=== PATIENT | female | born 1955 | race Caucasian/White ===

== ENCOUNTER 2023-03-23 08:46 | Day surgery (SDC) | payer MEDICARE, OTHER ==
[~2023-03-23 08:46] MED LIST: ALPRAZolam 0.25 MG TAB PO PRN; ALPRAZolam 0.5 MG TAB PO PRN; ASPIRIN 325 MG TAB PO STA; ATORVASTATIN 80 MG TAB PO STA; HEPARIN SODIUM,PORCINE (1 ML) 2,500 UNIT in SODIUM CHLORIDE 0.9% 250 ML IRRIGATION PRN; HEPARIN SODIUM,PORCINE 10,000 UNIT in SODIUM CHLORIDE 0.9% 1,000 ML IRRIGATION PRN; NITROGLYCERIN SL TABS 0.4 MG TAB SUBLINGUAL PRN; SODIUM CHLORIDE 0.9% 1,000 ML in EMPTY BAG 1 BAG IV SCH
[2023-03-23] MEDS ORDERED: SODIUM CHLORIDE 0.9% 1,000 ML IV ONE (08:57)
[2023-03-23 09:13] VITALS: TEMP 97.9
[2023-03-23 09:26] LABS: Basophils # (A) 0.1 k/uL (0-0.2); Basophils % (A) 1 %; Eosinophils # (A) 0.1 k/uL (0-0.7); Eosinophils % (A) 2 %; HCT 48.7 % (34.0-46.0); Lymphocytes # (A) 2.4 k/uL (1.0-4.8); Lymphocytes % (A) 33 %; MCH 29.3 pg (25.0-35.0); Mean Platelet Volume 8.4; Monocytes # (A) 0.4 k/uL (0-1.0); Monocytes % (A) 6 %; Neutrophils # (A) 4.2 k/uL (1.3-7.7); Neutrophils % (A) 57 %; Platelet Count 290 k/uL (150-450); RBC 5.46 m/uL (3.80-5.40); WBC 7.3 k/uL (3.8-10.6)
[2023-03-23 09:29] LABS: African American GFR (CKD) >90 (>60 ml/min/1.73 sqM); Anion Gap 11 mmol/L; Blood Urea Nitrogen 22 mg/dL (7-17); Calcium 11.1 mg/dL (8.4-10.2); Carbon Dioxide 27 mmol/L (22-30); Chloride 101 mmol/L (98-107); Glucose 219 mg/dL (74-99); Non-African American GFR(CKD) >90 (>60 ml/min/1.73 sqM); Potassium 4.1 mmol/L (3.5-5.1); Sodium 139 mmol/L (137-145)
[2023-03-23] MEDS ORDERED: LIDOCAINE 1% INJ 10MG/ML (20 ML MDV) ONE (11:41)
[2023-03-23] MEDS ORDERED: VERAPAMIL 2.5 MG/ML 2 ML AMP ONE (11:41)
[2023-03-23] MEDS ORDERED: SODIUM CHLORIDE 0.9% 500 ML 500 ML IV ONE (11:46)
[2023-03-23] MEDS ORDERED: HEPARIN SODIUM 1,000 UN/ML (10ML VL) ONE (11:59)
[2023-03-23] MEDS ORDERED: fentaNYL (PF) 50 MCG/ML 2 ML AMP ONE (12:00)
[2023-03-23] MEDS ORDERED: fentaNYL (PF) 50 MCG/ML 2 ML AMP IVP ONE (12:22)
[2023-03-23] MEDS ORDERED: LIDOCAINE 1% INJ 10MG/ML (20 ML MDV) SQ ONE (12:25)
[2023-03-23] MEDS: VERAPAMIL SYRINGE (5 MG/10 ML) INTRAARTER ONE ×2 (12:26→12:32)
[2023-03-23] MEDS ORDERED: HEPARIN SODIUM 1,000 UN/ML (10ML VL) IV ONE (12:30)
[2023-03-23] MEDS ORDERED: MIDAZOLAM 2 MG/2 ML VIAL IVP ONE (12:30)
[2023-03-23] MEDS ORDERED: IOPAMIDOL-370 100ML BTL INJ ONE (12:37)
[2023-03-23] MEDS ORDERED: RX INFO: IV CONTRAST WAS GIVEN 1 EACH MISC MISCELLANE PRN (12:45)
[2023-03-23] MEDS ORDERED: SODIUM CHLORIDE 0.9% 1,000 ML IV SCH (12:45)
--- NOTE | 2023-03-23 12:50 | P.CARDCATH ---
Date of Procedure: 03/23/23 Description of Procedure: Cardiac Catheterization: The patient is a 67-year-old female known history of hypertension, hyperlipidemia, chronic persistent atrial fibrillation who has been complaining of dyspnea on exertion and had an abnormal MPI. Recommendations were made regarding cardiac catheterization, the risks and the complications were discussed with the patient who is in full understanding and agreement. Procedure Description: Patient was brought to filling station laborer in fasting semi-sedated state after receiving Fentanyl and Benadryl achieiving moderate conscious sedated state. Using Xylocaine Anesthesia and modified Seldinger technique, a 6-Bengali sheath was introduced in the right radial artery . Subsequently, selective coronary angiography was performed using a 5-Bengali 3.5 bend Ivy catheter. Multiple views of the coronary artery including hemiaxial views were obtained. The right Ivy catheter was used to cross the aortic valve and LVEDP was calculated. Following that, catheter and sheath were removed. Hemostasis was obtained with deployment of vascular band . There was no immediate complication. Patient was returned to room in stable condition. Of note, the patient received a total of 5000 units of intravenous heparin as well as intra-arterial verapamil. Findings: Left main: This is a short sized vessel, bifurcating into LAD and left circumflex, left main has no obstructive disease LAD: This is a large size vessel, reaching to the apex, giving rise to a large diagonal branch in the mid segment. The LAD has mild intimal disease of 10-20% in the midsegment with no high-grade stenosis Left circumflex: This is a nondominant vessel, large in caliber, giving rise to a large OM, the left circumflex has mild plaque of 10% with no evidence of high- grade stenosis RCA: This is a large dominant vessel, bifurcating into PDA and PLV, the right coronary artery has mild disease in the midsegment of 10-20% with no high-grade stenosis Left Ventriculogram: Not performed Hemodynamics: There was no gradient across the aortic valve , LVEDP was 16-18 mmHg Conclusion: 1. Mild triple vessel disease 2. Right dominance Recommendations: I have recommended to continue medical therapy with the aggressive coronary risks modifications, patient will resume her anticoagulation for the chronic persistent atrial fibrillation . The findings and the recommendations were discussed with the patient and the family and they were in full understanding and agreement. Duration of sedation is 13 minutes.
[2023-03-23 14:23] VITALS: RESP 18
[2023-03-23 15:55] VITALS: BP 140/75; PULSE 90
[2023-03-23] MEDS ORDERED: ATORVASTATIN 40 MG TAB PO SCH (21:00)
[2023-03-23] MEDS ORDERED: DILTIAZEM ORAL 60 MG TAB PO SCH (21:00)
[2023-03-23] MEDS ORDERED: METOPROLOL TARTRATE 50 MG TAB PO SCH (21:00)
[2023-03-24] MEDS ORDERED: LEVOTHYROXINE 100 MCG TAB PO SCH (06:30)
[2023-03-24] MEDS ORDERED: CHOLECALCIFEROL 125 MCG (5000 IU) TABLET PO SCH (09:00)
== END 2023-03-23 16:04 | disposition home or self-care (01) ==
LOC: CATHCVL 08:46
PROVIDERS: ATTEND Internal Medicine Interventional Cardiology
DX: I25.10 Atherosclerotic heart disease of native coronary artery without angina pectoris (principal); I48.11 Longstanding persistent atrial fibrillation; I10 Essential (primary) hypertension; E78.5 Hyperlipidemia, unspecified
CPT/HCPCS: 93458; 80048; 85025; 99152; C1769 ×2; C1894; J2250; J2001; J3010; J1644; Q9967

== ENCOUNTER → 2024-01-25 | Outpatient (CLI) | payer MEDICARE, OTHER ==
--- NOTE | 2024-02-14 13:52 | P.PCN ---
Date of Procedure: 01/25/24 Description of Procedure: Home sleep study report Date of services 01/25/2024 History 68-year-old female patient referred for sleep apnea evaluation. The patient has loud snoring, witnessed apneas and she is currently sleeping in a recliner. She has mild triple-vessel coronary artery disease when she is asymptomatic. She has chronic A-fib and remote history of pulmonary embolism maintained on anticoagulation. Home sleep study was ordered to screen the patient for obstructive sleep apnea. Pertinent physical findings The patient height is 5 feet and 7 inches, weight is 254 pounds and a body mass index is 39.8 Technical description The [employer] system was used to complete his home sleep study. This is a type III home sleep study. The total recording duration was 8 hours and 22 minutes. The study started at 10:37 PM and ended at 700 a.m. There was a total of 7 hours and 56 minutes of flow evaluation 8 hours and 12 minutes of oxygen saturation evaluation Results Respiratory analysis showed a total of 4 obstructive apneas and 44 obstructive hypopneas. The resulting AHI was 6.0 Oxygenation analysis Few oxygen desaturations were noted throughout the sleep study with a pulse ox dropping more than 4%. Lowest pulse ox was 83%. Baseline pulse ox while the patient was awake was 95%. Average pulse ox was 93% during sleep. 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 Plan This is a case of a very mild obstructive sleep apnea. The patient's AHI is at 6 without any significant nocturnal oxygen desaturation. Clinically the patient is doing well. No significant hypersomnia or sleepiness. The patient is happy while sleeping in a recliner and she wants to maintain the same sleeping arrangement and situation. The patient is a Functionality has been well preserved and not much affected by her sleep apnea. I do not see the need for CPAP therapy at this point in time considering the mild nature of her ARISTEO. Encourage weight loss. Continue treating her comorbidities including cardiovascular risk factors. Contact me should there be any worsening of overall condition. For now, the patient will be treated conservatively.
== END ==
LOC: 3 N SLEEP 11:00
PROVIDERS: ATTEND Internal Medicine Critical Care Medicine